=== PATIENT | female | born 1980 | race Caucasian/White ===

== ENCOUNTER → 2020-11-21 | Outpatient (CLI) | payer SELFPAY | LOC: M LABSMTC 11:44 | PROVIDERS: ATTEND Pediatrics | DX: Z11.52 Encounter for screening for COVID-19 (principal) ==

== ENCOUNTER → 2021-02-11 | Outpatient (CLI) | payer BC ==
[~2021-02-11] MED LIST: TYLE650T38 PO
== END ==
LOC: M LABSMTC 12:34
PROVIDERS: ATTEND Anesthesiology
DX: Z01.812 Encounter for preprocedural laboratory examination (principal); Z11.52 Encounter for screening for COVID-19

== ENCOUNTER 2021-02-16 11:45 | Day surgery (SDC) | payer BC ==
[~2021-02-16] VITALS: Ht 157.5 cm; Wt 82.3 kg
[~2021-02-16 11:45] MED LIST changes: +LIDOCAINE 1% MDV 20ML VIAL SQ PRN; +LR 1,000 ML IV ONE
[2021-02-16 12:34] LABS: HEMATOCRIT 43.3 % (36.0-47.0); HEMOGLOBIN 14.3 g/dl (12.0-15.5); MEAN CORPUSCULAR HEMOGLOBIN 28.9 pg (27.0-33.0); MEAN CORPUSCULAR VOLUME 87.5 fl (80.0-96.0); PLATELET COUNT, AUTOMATED 349 10^3/uL (150-450); RED BLOOD COUNT 4.95 10^6/uL (4.00-5.40); WHITE BLOOD COUNT 8.2 10^3/uL (4.0-10.0)
[2021-02-16] MEDS ORDERED: MIDAZOLAM INJ 2MG/2ML VIAL (J2250 PER 1MG) As Ordered ONE (13:03)
[2021-02-16] MEDS ORDERED: ONDANSETRON 4MG/2ML VIAL As Ordered ONE (13:03)
[2021-02-16] MEDS ORDERED: KETOROLAC 60MG 2ML VIAL As Ordered ONE (13:03)
[2021-02-16] MEDS ORDERED: fentaNYL 100 MCG/2 ML INJECTION (J3010) As Ordered ONE (13:03)
[2021-02-16] MEDS ORDERED: dexameTHASONE 4 MG/ML 1ML VIAL (J1100 PER 1MG) As Ordered ONE (13:03)
[2021-02-16] MEDS ORDERED: HYDROmorphone HCL 2 MG/ML 1ML VIAL (J1170) As Ordered ONE (13:03)
[2021-02-16] MEDS ORDERED: LIDOCAINE 2% 100MG/5ML SDV (FOR ANES.) As Ordered ONE (13:04)
[2021-02-16] MEDS ORDERED: propofoL 200 MG/20 ML VIAL As Ordered ONE (13:04)
[2021-02-16] MEDS ORDERED: ROCURONIUM BROMIDE 50 MG/5 ML VIAL As Ordered ONE (13:04)
[2021-02-16] MEDS ORDERED: BUPIVACAINE/EPIN 0.25% 30 ML VIAL As Ordered ONE (13:41)
[2021-02-16] MEDS ORDERED: METHYLENE BLUE 0.5% (5MG/ML) 10 ML AMP (PROVAYBLUE) As Ordered ONE (13:42)
[2021-02-16] MEDS ORDERED: GLYCOPYRROLATE INJ 0.2 MG/ML 2 ML VIAL As Ordered ONE (14:39)
[2021-02-16] MEDS ORDERED: SUGAMMADEX SODIUM 500 MG/5 ML VIAL (BRIDION) As Ordered ONE (14:56)
[2021-02-16] MEDS ORDERED: fentaNYL 100 MCG/2 ML INJECTION (J3010) IV PRN (15:30)
[2021-02-16] MEDS ORDERED: PERCOCET 5MG/325MG TAB PO PRN (15:30)
[2021-02-16] MEDS ORDERED: LR 1,000 ML IV SCH (15:30)
[2021-02-16] MEDS ORDERED: oxyCODONE 5MG TAB PO PRN (15:30)
[2021-02-16] MEDS ORDERED: ONDANSETRON 4MG/2ML VIAL IV PRN (15:30)
[2021-02-16] MEDS ORDERED: HYDROMORPHONE HCL 0.5 MG/ 0.5 ML SYRINGE (J1170 PER 1) IV PRN (15:30)
[2021-02-16 17:15] VITALS: BP 121/69
[2021-02-16] MEDS ORDERED: IBUPROFEN 800 MG TAB PO SCH (19:00)
--- NOTE | 2021-02-18 08:22 | RO ---
OPERATIVE NOTE DATE OF OPERATION: 02/16/2021 INDICATION: Svetlana is a 40-year-old female who desires a permanent tubal sterilization. After counseling, the decision was made to proceed with laparoscopic removal of both tubes. Patient also had an IUD in place which she wishes to have removed. PREOPERATIVE DIAGNOSES: 1. Desires permanent tubal sterilization. 2. Presence of an IUD. POSTOPERATIVE DIAGNOSIS: 1. Desires permanent tubal sterilization. 2. Presence of an IUD. PROCEDURES: 1. Laparoscopic bilateral removal of both tubes. 2. Removal of intrauterine device. SURGEON: Dr. Webb. COAL HAULER: ANESTHESIA: General. COMPLICATIONS: None. ESTIMATED BLOOD LOSS: Less than 20 mL. SPECIMENS SENT TO THE LAB: Bilateral fallopian tubes. DESCRIPTION OF PROCEDURE: After obtaining informed consent, patient was taken to the operating room where general anesthetic was found to be adequate. She was then draped and prepped in the usual sterile fashion in the dorsal lithotomy position. At this point, a straight cath of her bladder was performed for approximately 300 mL of urine. We then placed a weighted speculum in the posterior fornix of the vagina. Using a Dumont retractor, the anterior lip of the cervix was then grasped with a single tooth tenaculum. The IUD was identified. The IUD was then removed. Uterine manipulator was then placed. I then turned my attention to the abdomen where a 5 mm infraumbilical incision was made. Using the Veress needle, the abdomen was insufflated with CO2 gas to approximately 3.5 liters and then an 8 mm right lateral port was placed. At this point, the patient was placed in steep Trendelenburg. The fallopian tubes on either side were identified with the fimbriated end. Using the Hal harmonic scalpel, the entire tube was removed all the way up the cornual area. After removal of both tubes, the pelvis was copiously irrigated with normal saline. Good hemostasis noted. All instruments removed. The laparoscopic ports were closed using 3-0 Vicryl in a subcuticular fashion. 0.25% Marcaine placed for postoperative pain. Patient tolerated the procedure well. She was then transferred to recovery room in stable condition. cc: [facility]
== END 2021-02-16 17:25 | disposition home or self-care (01) ==
LOC: M SDC 11:45
PROVIDERS: ATTEND Obstetrics & Gynecology
DX: Z30.2 Encounter for sterilization (principal); N92.1 Excessive and frequent menstruation with irregular cycle
CPT/HCPCS: 36415; 58301; 58661; 85027; 86850; 86900; 86901; 88302; J1100; J1170; J1885; J2250; J2405; J3010

== ENCOUNTER → 2021-10-16 | Outpatient (CLI) | payer BC ==
[~2021-10-16] MED LIST changes: -LIDOCAINE 1% MDV 20ML VIAL SQ PRN; -LR 1,000 ML IV ONE
[2021-10-16 10:12] LABS: BASO % 0.4 % (0.0-1.0); EOS # 0.1 10^3/uL (0.0-0.5); EOS % 1.6 % (0.0-3.0); HEMATOCRIT 41.5 % (36.0-47.0); HEMOGLOBIN 13.3 g/dl (12.0-15.5); LYMPH % 30.3 % (24.0-44.0); MEAN CORPUSCULAR VOLUME 87.4 fl (80.0-96.0); MONO # 0.7 10^3/uL (0.0-0.8); MONO % 10.1 % (2.0-8.0); NEUTROPHILS # 3.9 10^3/uL (1.5-8.5); NEUTROPHILS % 57.2 % (36.0-66.0); PLATELET COUNT, AUTOMATED 368 10^3/uL (150-450); RED BLOOD COUNT 4.75 10^6/uL (4.00-5.40); WHITE BLOOD COUNT 6.7 10^3/uL (4.0-10.0)
[2021-10-16 10:36] LABS: HEMOGLOBIN A1c 5.3 %
[2021-10-16 10:38] LABS: ERYTHROCYTE SEDIMENTATION RATE 7 mm/hr (0-20)
[2021-10-16 12:30] LABS: ALBUMIN 3.9 GM/DL (3.2-5.2); ALT/SGPT 29 U/L (12-78); BILIRUBIN,TOTAL 0.6 MG/DL (0.2-1.0); BLOOD UREA NITROGEN 13 MG/DL (7-18); C REACTIVE PROTEIN QUANTITATIV 0.34 MG/DL (0.00-0.30); CARBON DIOXIDE LEVEL 28 MEQ/L (21-32); CHLORIDE LEVEL 108 MEQ/L (98-107); CHOLESTEROL LEVEL 225 MG/DL (<200); CHOLESTEROL RISK RATIO 3.409 (<5); CREATININE FOR GFR 0.64 MG/DL (0.55-1.30); GLOMERULAR FILTRATION RATE > 60.0 (>58); GLUCOSE, FASTING 83 MG/DL (70-100); HDL CHOLESTEROL 66 MG/DL (>40); LDL CHOLESTEROL 142 MG/DL (<100); NON-HDL-C 159 MG/DL; POTASSIUM SERUM 4.4 MEQ/L (3.5-5.1); SODIUM LEVEL 140 MEQ/L (136-145); TOTAL PROTEIN 7.1 GM/DL (6.4-8.2); TRIGLYCERIDES LEVEL 83 MG/DL (<150)
[2021-10-17 10:28] LABS: TOTAL 25(OH) VITAMIN D 51.6 NG/ML (30.0-100.0)
== END ==
LOC: M RAD 09:01
PROVIDERS: ATTEND Physician Assistant
DX: E55.9 Vitamin D deficiency, unspecified (principal); G89.29 Other chronic pain; M54.50 Low back pain, unspecified; Z13.220 Encounter for screening for lipoid disorders; Z68.33 Body mass index [BMI] 33.0-33.9, adult

== ENCOUNTER → 2021-12-06 | Outpatient (REF) | payer BC | LOC: M SFHCDERM 17:11 | PROVIDERS: ATTEND Nurse Practitioner Family | DX: D22.61 Melanocytic nevi of right upper limb, including shoulder (principal) ==

== ENCOUNTER 2022-03-02 14:15 | Outpatient (RCR) | payer BC | END 2022-03-15 | LOC: M PT 14:15 | PROVIDERS: ATTEND Physician Assistant | DX: M54.50 Low back pain, unspecified (principal); M54.2 Cervicalgia ==

== ENCOUNTER → 2024-04-10 | Outpatient (CLI) | payer BC, OTHER | LOC: M WUC 12:52 | PROVIDERS: ATTEND Student in an Organized Health Care Education/Training Program | DX: M79.672 Pain in left foot (principal) ==

== ENCOUNTER → 2024-11-27 | Outpatient (CLI) | payer OTHER | LOC: M WUC 10:08 | PROVIDERS: ATTEND Student in an Organized Health Care Education/Training Program | DX: M25.512 Pain in left shoulder (principal) ==